=== PATIENT | female | born 1955 | race Hispanic/Latino ===

== ENCOUNTER → 2018-02-23 | Outpatient (CLI) | payer OTHER ==
[~2018-02-23] MED LIST: NKM
== END ==
LOC: MAMMO 13:34
PROVIDERS: ATTEND Internal Medicine
DX: Z12.31 Encounter for screening mammogram for malignant neoplasm of breast (principal)
CPT/HCPCS: 77067

== ENCOUNTER → 2018-05-08 | Outpatient (CLI) | payer OTHER ==
--- NOTE | 2018-05-08 11:46 | Diagnostic Imaging Report ---
PROCEDURE:HIP RIGHT 2-3 VW (+/- PELVIS) COMPARISON:None. INDICATIONS:RIGHT HIP PAIN FINDINGS: No evidence of acute displaced fracture or dislocation of the right hip. No periosteal reaction, erosion, or abnormal soft tissue calcification. Vascular calcifications are seen. Degenerative changes of the right SI joint, lower lumbar spine, and mild degenerative changes of the right hip are seen. CONCLUSION: No acute fracture or dislocation of the right hip. Dictated by: Reynaldo Mas M.D. on 05/08/2018 at 11:36 Electronically approved by: Reynaldo Mas M.D. on 05/08/2018 at 11:36
== END ==
LOC: RAD 10:36
PROVIDERS: ATTEND Internal Medicine
DX: M16.11 Unilateral primary osteoarthritis, right hip (principal)

== ENCOUNTER → 2018-10-10 | Outpatient (CLI) | payer OTHER ==
--- NOTE | 2018-10-10 11:18 | Diagnostic Imaging Report ---
EXAM: lumbar spine, 2 view, AP and supine lateral; Sacrum - AP and lateral INDICATION: Right sided sciatica. COMPARISON: None FINDINGS: There is grade 1 anterolisthesis of L4 on L5. Vertebral body heights are preserved. There are mild degenerative disc changes, most pronounced at T10-L1 and L5-S1. There are moderate facet degenerative changes at L4-L5 and L5-S1. No significant bony neural foraminal stenosis. Dedicated sacral radiographs demonstrate no evidence of acute displaced fracture. Surgical clips project over the upper abdomen. IMPRESSION: Mild anterolisthesis of L4 and L5 with mild degenerative disc and moderate facet degenerative changes in the lower lumbar spine. No acute radiographic abnormality. Signed by: Dr. Juan Miguel Salazar MD on 10/10/2018 11:15 AM
== END ==
LOC: RAD 10:08
PROVIDERS: ATTEND Internal Medicine
DX: M54.31 Sciatica, right side (principal)
CPT/HCPCS: 72110; 72220

== ENCOUNTER → 2018-12-26 | Outpatient (CLI) | payer OTHER ==
--- NOTE | 2018-12-26 12:43 | Diagnostic Imaging Report ---
Limited soft tissue ultrasound of the left upper extremity. History: Lump left upper extremity, query mass. Technique/findings: In the area of clinical concern in the left upper extremity, there is a well-circumscribed, homogeneous, slightly hyperechoic soft tissue nodule measuring up to 2.5 x 1 cm. There is no associated Doppler flow. IMPRESSION: Nonaggressive appearing hyperechoic soft tissue nodule within the left upper extremity, likely representing a lipoma. Signed by: Dr. Juan Miguel Salazar MD on 12/26/2018 12:40 PM
== END ==
LOC: US 11:06
PROVIDERS: ATTEND Internal Medicine
DX: R22.32 Localized swelling, mass and lump, left upper limb (principal)
CPT/HCPCS: 76882

== ENCOUNTER → 2019-02-27 | Outpatient (CLI) | payer OTHER | LOC: MAMMO 08:48 | PROVIDERS: ATTEND Internal Medicine | DX: Z12.31 Encounter for screening mammogram for malignant neoplasm of breast (principal) | CPT/HCPCS: 77067 ==

== ENCOUNTER → 2020-09-23 | Outpatient (CLI) | payer OTHER ==
[~2020-09-23] MED LIST changes: +COVID-19 VACC, MRNA(MODERNA)/PF 100 MCG/0.5 ML VIAL IM ONE
== END ==
LOC: VACCPMC 18:00
DX: Z23 Encounter for immunization (principal); Z20.822 Contact with and (suspected) exposure to COVID-19

== ENCOUNTER → 2020-10-26 | Outpatient (CLI) | payer OTHER | END | DRG 951 | LOC: VACCPMC 09:38 | DX: Z23 Encounter for immunization (principal); Z20.822 Contact with and (suspected) exposure to COVID-19 | CPT/HCPCS: 0012A; 91301 ==